=== PATIENT | male | born 1965 | race African-American/Black ===

== ENCOUNTER → 2023-06-23 | Day surgery (SDC) | payer OTHER ==
[~2023-06-23] VITALS: Ht 182.9 cm; Wt 87.6 kg
[~2023-06-23] MED LIST: ACETAMINOPHEN 1000MG 100ML IV BAG As Ordered ONE; CEPH500C PO; CHLOROPROCAINE PRES. FREE 3% 20ML VIAL As Ordered ONE; HYDR-3713 PO; HYDROMORPHONE HCL 0.5 MG/ 0.5 ML SYRINGE IV PRN; LANTINJ4 SC; LIDOCAINE 1% SDV 30ML VIAL As Ordered ONE; LIDOCAINE 2% 100MG/5ML SDV (FOR ANES.) As Ordered ONE; LISI40TA4 PO; LR 1,000 ML IV SCH; METOCLOPRAMIDE INJ 10MG/2ML VIAL As Ordered ONE; MIDAZOLAM INJ 2MG/2ML VIAL As Ordered ONE; NORV5TAB PO; NOVOINJ SC; ONDANSETRON 4MG 2ML VIAL As Ordered ONE; ONDANSETRON 4MG 2ML VIAL IV PRN; PANT40TA29 PO; ROSU40TA4 PO; VITA100093 PO; ceFAZolin SOD 2 GM in IV 1 EA IV ONE; fentaNYL 100 MCG/2 ML INJECTION As Ordered ONE; fentaNYL 100 MCG/2 ML INJECTION IV PRN; oxyCODONE 5MG TAB PO PRN; propofoL 200 MG/20 ML VIAL As Ordered ONE
[2023-06-23 16:47] VITALS: BP 127/78; TEMP 97.4; O2SAT 96
== END | disposition home or self-care (01) ==
LOC: M SDC 11:55
PROVIDERS: ATTEND Urology
DX: N47.1 Phimosis (principal); I10 Essential (primary) hypertension; E10.9 Type 1 diabetes mellitus without complications; E78.5 Hyperlipidemia, unspecified; K21.9 Gastro-esophageal reflux disease without esophagitis; Z79.4 Long term (current) use of insulin; Z79.899 Other long term (current) drug therapy
CPT/HCPCS: 54161; 88304; J0131; J2250; J2401; J2405; J2765; J3010